=== PATIENT | female | born 1970 | race Caucasian/White ===

== ENCOUNTER → 2018-08-08 | Outpatient (CLI) | payer BC ==
[~2018-08-08] MED LIST: IOPAMIDOL 370 MG/ML 200 ML INFUS..BTL INJ ONE; SODIUM CHLORIDE 0.9% 50ML 50 ML ONE
[2018-08-08 12:45] LABS: BLOOD UREA NITROGEN 11 mg/dL (8-26); BUN/CREATININE RATIO 16 (6-25); CREATININE, SERUM 0.7 mg/dL (0.6-1.1); EST GLOMERULAR FILTRATION RATE > 60 ML/MIN (60-)
--- NOTE | 2018-08-08 14:30 | Diagnostic Imaging Report ---
EXAMINATION: CT scan of the chest with contrast. TECHNIQUE: Spiral CT images of the chest were performed from the lung apices to the level of the adrenal glands after the intravenous administration of 100 cc Isovue-[id number]. Coronal and sagittal reformatted images were obtained. COMPARISON: None. CLINICAL HISTORY:Cough x3 weeks DISCUSSION: LINES/TUBES: None. LUNGS AND AIRWAYS: Trace linear and reticular opacity in the dependent portions of the lower lobes compatible with subsegmental atelectasis. No consolidation, bronchiectasis, or fibrotic change. Trachea, mainstem bronchi, and central lobar and segmental bronchi are patent. PLEURA: No pneumothorax or pleural effusions. HEART AND MEDIASTINUM: Visualized portions of the thyroid gland are normal. No ectasia or aneurysmal dilatation of the thoracic aorta. 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 The pulmonary outflow tract is of normal caliber. No central filling defects in the pulmonary arterial system. No pericardial effusion. Moderate sliding hiatal hernia. LYMPH NODES: No axillary, hilar, or mediastinal lymphadenopathy. ABDOMEN: Visualized portions of the liver, gallbladder, pancreas, and adrenals are unremarkable. BONES AND SOFT TISSUES: No osseous destructive lesions. No focal soft tissue abnormalities. IMPRESSION: No acute thoracic CT abnormalities. Mild bibasilar subsegmental atelectasis. Moderate sliding hiatal hernia. Signed by: Dr. Mahesh Thorne M.D. on 08/08/2018 2:27 PM
== END ==
LOC: CT 11:50
PROVIDERS: ATTEND Family Medicine
DX: R05 Cough (principal); J20.9 Acute bronchitis, unspecified; J98.11 Atelectasis; K44.9 Diaphragmatic hernia without obstruction or gangrene
CPT/HCPCS: 36415; 71260; 82565; 84520; Q9967